=== PATIENT | female | born 1970 | race Caucasian/White ===

== ENCOUNTER → 2023-04-05 07:58 | Outpatient (REF) | payer OTHER, SELFPAY | LOC: PET 07:58 | PROVIDERS: ATTENDING PHYSICIAN Internal Medicine Medical Oncology | DX: C50.919 Malignant neoplasm of unspecified site of unspecified female breast (principal); C79.52 Secondary malignant neoplasm of bone marrow | CPT/HCPCS: 78815; A9552 ==

== ENCOUNTER → 2023-05-04 17:19 | Outpatient (REF) | payer OTHER, SELFPAY | LOC: PAVMRI 17:19 | PROVIDERS: ATTENDING PHYSICIAN Internal Medicine Medical Oncology; FAMILY PHYSICIAN Family Medicine | DX: C50.919 Malignant neoplasm of unspecified site of unspecified female breast (principal) | CPT/HCPCS: 72148; 72195 ==

== ENCOUNTER → 2023-07-05 08:21 | Outpatient (REF) | payer OTHER, SELFPAY | LOC: PET 08:21 | PROVIDERS: ATTENDING PHYSICIAN Internal Medicine Medical Oncology | DX: C50.919 Malignant neoplasm of unspecified site of unspecified female breast (principal) | CPT/HCPCS: 78815; A9552 ==

== ENCOUNTER → 2023-07-13 17:58 | Outpatient (REF) | payer OTHER, SELFPAY | LOC: MRI 17:58 | PROVIDERS: ATTENDING PHYSICIAN Radiology Radiation Oncology; FAMILY PHYSICIAN Family Medicine | DX: C50.919 Malignant neoplasm of unspecified site of unspecified female breast (principal); C79.52 Secondary malignant neoplasm of bone marrow | CPT/HCPCS: 72157; 72158; A9575 ==

== ENCOUNTER → 2023-09-06 08:45 | Outpatient (REF) | payer OTHER, SELFPAY | LOC: HWRAD 08:45 | PROVIDERS: ATTENDING PHYSICIAN Obstetrics & Gynecology Gynecology; FAMILY PHYSICIAN Family Medicine | DX: N95.0 Postmenopausal bleeding (principal) | CPT/HCPCS: 76830; 76856 ==

== ENCOUNTER → 2023-11-08 07:56 | Outpatient (REF) | payer OTHER, SELFPAY | LOC: PET 07:56 | PROVIDERS: ATTENDING PHYSICIAN Internal Medicine Medical Oncology | DX: C50.212 Malignant neoplasm of upper-inner quadrant of left female breast (principal) | CPT/HCPCS: 78815; A9552 ==

== ENCOUNTER → 2024-02-14 08:37 | Outpatient (REF) | payer OTHER, SELFPAY | LOC: PET 08:37 | PROVIDERS: ATTENDING PHYSICIAN Internal Medicine Medical Oncology | DX: C50.212 Malignant neoplasm of upper-inner quadrant of left female breast (principal) | CPT/HCPCS: 78815; A9552 ==

== ENCOUNTER 2024-04-09 21:23 | Observation (INO) | payer OTHER, SELFPAY ==
[2024-04-09 16:27] VITALS: BP 167/95
--- NOTE | 2024-04-09 16:35 | ED.GENMED ---
ED Provider Triage
<Dalia Mcpherson PA-C - Last Filed: 04/09/24 16:36>
-
Patient seen by provider in Triage?: Seen in Triage
Attestation: A medical screening examination has been initiated by a qualified medical provider. Based on the assessment performed at this time, it has been determined that an emergent medical condition may exist and the patient has been informed
that further medical evaluation and possible additional diagnostic testing may be needed.
HPI:53yoF here with blurred and double vision since Monday. New headache today. Saw eye doctor today and dilated eye exam was normal. She was sent to the ED for evaluation. Eye doctor requesting inflammatory markers, myasthenia gravis panel, and
MRI.
GENERAL: Alert , in no apparent distress
EYE: No visual abnormalities.
NECK: Trachea midline
ENT: No visible abnormalities.
LUNGS: No acute respiratory distress
NEUROLOGICAL: Alert and oriented
SKIN: Skin intact. No visible changes.
MUSCULOSKELETAL: Moving extremities normally
PSYCH: Normal and appropriate interaction.
This is a medical evaluation conducted in person to initiate diagnostic evaluation and provide initial therapeutics. Please see further documentation by the treating clinician.
Cardiac labs, ESR/CRP, EKG, and CT head ordered.
History of Present Illness
<Dalia Mcpherson PA-C - Last Filed: 04/09/24 16:36>
General
Chief Complaint: Headache
Time Seen by Provider: 04/09/24 18:28
<Gerhard Khan DO - Last Filed: 04/09/24 20:10>
History of Present Illness
History of Present Illness:
TIME OF INITIAL ENCOUNTER: 6:30 PM
HPI: The patient presents due to double/blurred vision over the past 4 days. She has no headache. She saw a fresh meat grader at Dr. Sanchez's office who sent her here for further evaluation. They wanted her to have MRI/myasthenia testing, and
inflammatory markers. She was told by the fresh meat grader that her symptoms are not 'not related to my eyes'.
EXAM:
GENERAL: Well appearing in no distress
HEENT: Moist oral mucosa
CARDIOVASCULAR: No murmurs, normal heart rate, regular rhythm, No chest wall tenderness
PULMONARY: No respiratory distress, breath sounds are clear and equal
ABDOMEN: Soft with no peritoneal signs, no tenderness
NEUROLOGIC: Excellent strength all extremities, no coordination deficits, no field cuts, no definite palsy nor disconjugate gaze, visual acuity in each eye corrected is 2024 this is an acute problem
PSYCHIATRIC: Appropriate mental status, normal insight and judgement
EXTREMITIES: Nontender, no edema, moves all extremities equally
SKIN: No rash, no lesions
NUMBER AND COMPLEXITY OF PROBLEMS ADDRESSED AT THE ENCOUNTER
� Chronic conditions affecting care: History of breast cancer
� Acute Exacerbation and/or Progression of Chronic Illness: This is an acute problem
� Differential Diagnosis includes: Vasculitis, hyper/hypoglycemia, aneurysm, intracranial mass/met
AMOUNT AND/OR COMPLEXITY OF DATA TO BE REVIEWED AND ANALYZED
� I performed an independent evaluation of and my interpretation is:
EKG: Sinus 83, incomplete right bundle branch block, no old to compare
CT: CT brain shows no acute abnormality
X-rays:
Laboratory Studies: White count 2.0, hemoglobin 10.6, sed rate 27, CRP less than 5, troponin less than 0.012
Other:
� Review of other/old records: I reviewed old records, the patient's white count in 2017 was also low at 2.3, today it is 2.0
� Clinical information was obtained by an independent historian: I spoke to at bedside
� Prescriptions/Medications Considered but not given:
� Further testing considered but not performed:
RISK OF COMPLICATIONS AND/OR MORBIDITY OR MORTALITY OF PATIENT MANAGEMENT
� Social determinants of health affecting care: Lives at home
� Discussion with other providers: I discussed case with Dr. Sanon who recommends patient be kept in the hospital for further evaluation
� Escalation of care including admission/observation vs risk of discharge considered: Initial studies to the emergency department unremarkable. Neurology recommends patient stay in the hospital therefore I have asked internal
medicine keep the patient for further evaluation.
ANY OTHER UPDATES:
Past History
<Dalia Mcpherson PA-C - Last Filed: 04/09/24 16:36>
Past History
ED Past Medical History: Cancer
ED Past Surgical History: None
Social History
Tobacco: Non-smoker
Personal:
Living: with family
Phy Exam
<Gerhard Khan DO - Last Filed: 04/09/24 20:10>
Physical Exam
Physical Exam:
See HPI
Course
<Dalia Mcpherson PA-C - Last Filed: 04/09/24 16:36>
Orders/Labs/Results
Orders:
Orders
04/09/24 16:31
Electrocardiogram (*1) Urgent
Reason for Study: TIA/Stroke
CT Head W/o Iv Contrast Urgent
Comment:
Reason For Exam: Blurred/double vision
EKG- Treatment ONCE
04/09/24 16:40
CRP [C-Reactive Protein] Urgent
Complete Blood Count/With Diff Urgent
Comprehensive Metabolic Panel Urgent
ESR [Erythrocyte Sed Rate] Urgent
Troponin I Urgent
Abnormal Lab Results
04/09/24
16:40
WBC 2.0 L* 10^3/uL
(4.8-10.8)
RBC 2.89 L 10^6/uL
(4.20-5.40)
Hgb 10.6 L g/dL
(12.0-16.0)
Hct 30.2 L %
(37.0-47.0)
MCV 104.5 H fL
(81.0-99.0)
MCH 36.7 H pg
(27.0-31.0)
Absolute Neuts (auto) 1.3 L 10^3/uL
(1.4-6.5)
Absolute Lymphs (auto) 0.4 L 10^3/uL
(1.2-3.4)
Monocytes % 13.9 H %
(1.7-9.3)
ESR 27 H mm/hour
(0-20)
Glucose 112 H mg/dl
(70-99)
Albumin 5.1 H g/dl
(3.5-5.0)
04/09/24 16:40
04/09/24 16:40
Vital Signs
Initial and Last Documented VS:
Initial Vital Signs
Temp Pulse Resp BP Pulse Ox
37.0 C 107 17 167/95 99
04/09/24 16:27 04/09/24 16:27 04/09/24 16:27 04/09/24 16:27 04/09/24 16:27
Last Documented Vital Signs
Temp Pulse Resp BP Pulse Ox
37.0 C 107 17 167/95 99
04/09/24 16:27 04/09/24 16:27 04/09/24 16:27 04/09/24 16:27 04/09/24 16:27
Ha[place];Gerhard Khan, - Last Filed: 04/09/24 20:10>
Orders/Labs/Results
Orders:
Orders
04/09/24 16:31
Electrocardiogram (*1) Urgent
Reason for Study: TIA/Stroke
CT Head W/o Iv Contrast Urgent
Comment:
Reason For Exam: Blurred/double vision
EKG- Treatment ONCE
04/09/24 16:40
CRP [C-Reactive Protein] Urgent
Complete Blood Count/With Diff Urgent
Comprehensive Metabolic Panel Urgent
ESR [Erythrocyte Sed Rate] Urgent
Troponin I Urgent
Abnormal Lab Results
04/09/24
16:40
WBC 2.0 L* 10^3/uL
(4.8-10.8)
RBC 2.89 L 10^6/uL
(4.20-5.40)
Hgb 10.6 L g/dL
(12.0-16.0)
Hct 30.2 L %
(37.0-47.0)
MCV 104.5 H fL
(81.0-99.0)
MCH 36.7 H pg
(27.0-31.0)
Absolute Neuts (auto) 1.3 L 10^3/uL
(1.4-6.5)
Absolute Lymphs (auto) 0.4 L 10^3/uL
(1.2-3.4)
Monocytes % 13.9 H %
(1.7-9.3)
ESR 27 H mm/hour
(0-20)
Glucose 112 H mg/dl
(70-99)
Albumin 5.1 H g/dl
(3.5-5.0)
04/09/24 16:40
04/09/24 16:40
Vital Signs
Initial and Last Documented VS:
Initial Vital Signs
Temp Pulse Resp BP Pulse Ox
37.0 C 107 17 167/95 99
04/09/24 16:27 04/09/24 16:27 04/09/24 16:27 04/09/24 16:27 04/09/24 16:27
Last Documented Vital Signs
Temp Pulse Resp BP Pulse Ox
37.0 C 107 17 167/95 99
04/09/24 16:27 04/09/24 16:27 04/09/24 16:27 04/09/24 16:27 04/09/24 16:27
<Gerhard Khan DO - Last Filed: 04/09/24 20:10>
*Critical Care Note
Total Time (30-74mins, 75-104mins- exclusive of procedures): Not Applicable
ED Attending Note
<Dalia Mcpherson PA-C - Last Filed: 04/09/24 16:36>
-
Portions of this chart may have been created with voice recognition software.� Occasional wrong word or��sound alike� substitutions may have occurred due to the inherent limitations of voice recognition software.
Discharge Plan
Departure
Patient Disposition: Admit
Date of Disposition: 04/09/24
Time of Disposition: 18:49
Presentation/result/management discussed w/ accepting MD/DO: Hospitalist
Discharge Problem:
Double vision
Prescriptions:
No Action
letrozole 2.5 MG tablet
2.5 mg PO HS
Ibrance 125 MG capsule
See Rx Instructions .ROUTE .COMPLEX
Patient Comments:
04/09/24: This is patient's off week
Rx Instructions:
125 mg orally daily every other week
acetaminophen [Tylenol] 325 mg Tablet
325 mg PO Q6HPRN PRN (Reason: headache)
levothyroxine 112 mcg Tablet
112 mcg PO DAILY
cholecalciferol (vitamin D3) [Vitamin D3] 25 mcg (1,000 unit) Tablet
25 mcg PO DAILY
Referrals:
Javi Mayberry MD [Family Provider] -
Interventions
Interventions:
*Risk Screen - Suicide Last Done: 04/09/24 16:28
*General Assessment Last Done: 04/09/24 16:28
*Neglect/Abuse Screening Last Done: 04/09/24 16:28
*ED COVID-19 Vaccine History Last Done: 04/09/24 16:28
Discharge Date and Time
Print Language: CYMRAES
[2024-04-09 16:56] LABS: % Eosinophils 0.5 % (0-6); % Immature Granulocytes 0.5 % (0-0.5); % Lymphocytes 20.9 % (20.5-51.1); % Monocytes 13.9 % (1.7-9.3); % Neutrophils 62.2 % (42.2-75.2); Absolute Lymphocytes 0.4 10^3/uL (1.2-3.4); Absolute Monocytes 0.3 10^3/uL (0.1-0.6); Absolute Neutrophils 1.3 10^3/uL (1.4-6.5); Hematocrit 30.2 % (37.0-47.0); Hemoglobin 10.6 g/dL (12.0-16.0); Mean Corp Hgb Conc. 35.1 g/dL (33.0-37.0); Mean Corpuscular Hgb 36.7 pg (27.0-31.0); Mean Corpuscular Volume 104.5 fL (81.0-99.0); Mean Platelet Volume 9.9 fL (7.4-10.4); Nucleated Red Blood Cells % 0 %; Platelet Count 178 10^3/uL (130-400); Red Blood Cell Count 2.89 10^6/uL (4.20-5.40); Red Cell Dist. Width 13.2 % (11.5-14.5)
[2024-04-09 17:05] LABS: ALT (SGPT) 14 U/L (0-35); AST (SGOT) 19 U/L (14-36); Albumin 5.1 g/dl (3.5-5.0); Alkaline Phosphatase 91 U/L (38-126); Blood Urea Nitrogen 13 mg/dl (7-17); Carbon Dioxide 26 mmol/L (22-30); Chloride 102 mmol/L (98-107); Glucose 112 mg/dl (70-99); Potassium 4.2 mmol/L (3.5-5.1); Sodium 137 mmol/L (135-145); Total Bilirubin 0.9 mg/dl (0.2-1.3); Total Protein 7.6 g/dl (6.3-8.2); eGFR > 60.00
[2024-04-09 17:08] LABS: C-Reactive Protein < 5.00 mg/L (0.0-10.00)
[2024-04-09 17:10] LABS: Erythrocyte Sed Rate 27 mm/hour (0-20)
[2024-04-09 17:15] LABS: Troponin I < 0.012 ng/ml
--- NOTE | 2024-04-09 19:55 | HPS.HSE ---
Family Physician
-
Family Physician: Javi Mayberry
Chief Complaint
-
Diplopia
History of Present Illness
This is a 53-year-old female with past medical history significant for hypothyroidism, breast cancer who presents to the emergency department with 4 days of diplopia.
Patient reports sudden onset of double vision. She also reports blurry vision. This improves when she closes 1 eye. The double vision is slightly diagonal in orientation. She denies any headache initially. She denies any sensation of foreign
body. She denies any lacrimation or eye pain. She denies any other focal neurological deficits. She was seen by optometry today and she had a normal eyesight. Reported to have a acuity of 20/25. Due to the ongoing double vision she was sent to
the emergency department for evaluation. Patient denies any prior history of vision abnormalities she does have eyeglasses for nearsightedness. The double vision does no change with eyeglasses are without.
In the ED she was hypertensive with a blood pressure 160/90, pulse of 100 and temperature of 98.6. ECG showed normal sinus rhythm at a rate of 83. Troponin was negative. CBC showed a white count of 2.0 which is chronic and unchanged. Hemoglobin
was 10.6 also unchanged. Electrolytes BUN/creatinine were within the normal range. Inflammatory markers were negative for the ESR of 27 and a CRP there is less than 5.
CT of the head shows no acute intracranial process.
Medical History
Past Medical History
Past Medical History: Reports Cancer (Breast cancer in remission) and Hypothyroidism
Past Surgical History: Reports Other
Social History
Tobacco: Non-smoker
Alcohol: None
Drug: None
Personal:
Living: With Family
Employment: Employed
Family History
Family History: Not pertinent
Allergies / Home Medications
Allergies reflects when Allergies were last updated in [facility].
Home Medications with original date entered in [facility]
Allergy/Medication List:
Allergies
Allergy/AdvReac Type Severity Reaction Status Date / Time
No Known Allergies Allergy Unverified 04/15/16 20:54
Home Medications
letrozole 2.5 mg tablet 2.5 mg PO HS 04/15/16
palbociclib 125 mg capsule (Ibrance) See Rx Instructions .Route .COMPLEX 04/15/16
acetaminophen 325 mg tablet (Tylenol) 325 mg PO Q6HPRN PRN headache 04/09/24
cholecalciferol (vitamin D3) 25 mcg (1,000 unit) tablet (Vitamin D3) 25 mcg PO DAILY 04/09/24
levothyroxine 112 mcg tablet 112 mcg PO DAILY 04/09/24
Review of Systems
-
History Source: Patient
Constitutional: Reports No Symptoms
EENT: Reports No Symptoms
Respiratory: Reports No Symptoms
Cardiac: Reports No Symptoms
Abdomen/GI: Reports No Symptoms
: Reports No Symptoms
Musculoskeletal: Reports No Symptoms
Skin: Reports No Symptoms
Neurological: Reports No Symptoms
Endocrine: Reports No Symptoms
Hematologic/Lymphatic: Reports No Symptoms
Psych: Reports No Symptoms
Physical Exam
Vital Signs
Vital Signs
Temp Pulse Resp BP Pulse Ox
98.6 F 107 17 167/95 99
04/09/24 16:27 04/09/24 16:27 04/09/24 16:27 04/09/24 16:27 04/09/24 16:27
Physical Exam
General: Well Developed, Well Nourished and No Apparent Distress
HEENT: NormoCephalic, Anicteric, Moist mucous membranes and PERRLA
Respiratory: Clear
Cardiac: S1/S2
Breast: Deferred by me
Rectal: Deferred by Provider
Genito-urinary: Deferred by me
Musculoskeletal: No Clubbing and No Cyanosis
Skin: Warm
Neuro: AO x 3, No Motor Deficits, Cranial Nerves Intact and Other (No visual field defects. There is a slight left eye droop. )
Hematologic/Lymphatic: No Lymphadenopathy
Psych: Calm
Laboratory Results
-
04/09/24 16:40
04/09/24 16:40
Laboratory Results
Total Bilirubin 0.9 mg/dl (0.2-1.3) 04/09/24 16:40
AST 19 U/L (14-36) 04/09/24 16:40
ALT 14 U/L (0-35) 04/09/24 16:40
Alkaline Phosphatase 91 U/L (38-126) 04/09/24 16:40
Troponin I < 0.012 ng/ml 04/09/24 16:40
Data Reviewed
-
CT Scan: Report Reviewed by me
Lab Data: Labs Reviewed by me
Old Records: Reviewed
Impression/Plan
-
IMPRESSION:
Patient with history of breast ca in remission, hypothyroid presenting with diploplia x 4 days. Persistent and constant. Not worse with any particular saccade motion. No vertigo. Exam is very negative with good visual acuity, no visual field
defect, no eye movement defect and no eye swelling. She has no other focal neurological deficits. Initial testing is negative for stroke on CT, negative non-specific inflammatory markers.
PLAN:
Diplopia - No evidence of gaze palsy at this time. Differential includes QUENTIN lesion, MG, MS or thyroid ophthalmopathy. Mostly can be w/u as outpatient except subacute stroke in F.
- admit to med/surg
- neuro consult
- mri in am
- cardiovascular panel
- tsh
- w/ negative inflammatory markers will leave specific serological testing to neuro if needed.
- continue levothyroxine
DVT PPX - SCDs
Code Status - Full Code
[2024-04-09 19:57] VITALS: BP 131/76
[2024-04-09 20:00] VITALS: BP 123/83
[2024-04-09 21:00] VITALS: BP 123/76
[2024-04-09 22:00] VITALS: BP 128/88
--- NOTE | 2024-04-09 22:25 | PTCARENOTE ---
Pt. arrived on unit via stretcher. A&Ox3. Ambulated from stretcher to bed. Pt. oriented to unit. Call light within reach.
[2024-04-09 22:26] VITALS: BMI 21.5
[2024-04-09] MEDS: TYLENOL 325 MG PO (22:47)
[2024-04-09] MEDS: FEMARA 2.5 MG PO (22:47)
[2024-04-09 23:35] VITALS: BP 138/86
[2024-04-10] MEDS: SYNTHROID 112 MCG PO (05:16)
[2024-04-10 07:00] VITALS: BP 127/77
--- NOTE | 2024-04-10 07:15 | CON.NEURO ---
Consultation
Order
Date of Consultation: 04/10/24
Requesting Provider: Alonzo Santiago MD
Reason for Consult: Diplopia
Neurology Consultation Note.
HPI: This is a 53-year-old woman who presented to [facility] on 04/09/2024 with change in vision. According to the patient she developed intermittent binocular painless horizontal diplopia worse at distance around 4 days ago. Her
symptoms are worse in the morning and improve at the end of the day. No reports of head trauma, dysarthria, dysphagia, facial numbness, vertigo or dyspnea.
ER VS: 167/92, 107, afebrile
EKG: NSR, QTc Int : 458 ms
Labs: WBCs�2.0, hemoglobin�10.6, MCV�104.5, absolute lymphocyte count�0.4, ESR�27, glucose�112�normal sodium,
CT head wo contrast�unremarkable
LS spine MRI w/wo maura(05/04/2023)-2.0 x 1.2 x 2.0 cm oval-shaped circumscribed paraspinal cyst complex cyst.
PMH: stage IV left breast invasive carcinoma(2013), S3 osseous metastases, s/p RT , anemia, hypothyroidism vitamin D deficiency, osteopenia, GERD
PSH: Right breast cystectomy
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
FH: Mother�check arrhythmia, grandmother�colon cancer, stroke.
All:NKDA
ROS:Constitutional: Negative. Negative for chills, fever and unexpected weight change.
HENT: Positive for diplopia
Eyes: Negative. Negative for photophobia, pain and visual disturbance.
Respiratory: Negative for cough, choking and shortness of breath.
Cardiovascular: Negative for chest pain, palpitations and leg swelling.
Gastrointestinal: Negative for abdominal pain and vomiting.
Endocrine: Negative. Negative for cold intolerance.
Genitourinary: Negative for dysuria, flank pain and urgency.
Musculoskeletal: Negative for back pain, gait problem, neck pain and neck stiffness.
Skin: Negative for rash.
Allergic/Immunologic: Negative. Negative for immunocompromised state.
Neurological: Positive for transient left foot drop in 2023
Psychiatric/Behavioral: Negative for behavioral problems, confusion and hallucinations.
General: Well developed. In no acute distress.
Cardio: Regular rate and rhythm without murmur. Extremities are without cyanosis or edema.
Neuro:
Mental Status: Alert, oriented to person, place, and date. Normal attention and recall. Good fund of knowledge. Follows complex requests across the midline. Comprehension, naming, and repetition intact. Immediate and delayed recall 3/3.
Cranial Nerves: . Pupils are equally round and reactive to light. EOMs full. Visual abbott full to confrontation. Horizontal binocular diplopia at distance. Mild L ptosis. No nystagmus. V1-V3 intact to light touch and pinprick bilaterally,
symmetric. Face symmetric. Normal hearing AU. The palate elevated well. SCMs and traps 5/5. Tongue midline. No dysarthria.
Motor: Normal bulk and tone. No pronator or arm drift. Strength 5/5 throughout. No clonus.
Reflexes: 2+ throughout the upper extremities and knees. Plantar responses flexor bilaterally.
Sensory: Normal vibration at the toes
Coordination: No dysmetria or tremor.
Gait: deferred
Assessment and Plan:
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
II. Stage IV left breast invasive carcinoma
III. T/LS DJD, S3 osseous metastases, s/p RT
-Continue Telemetry monitoring.
-Brain MRI with and without gadolinium
-Please check TFTs, MG panel, �voltage-gated calcium channel ab
-OP NCS/EMG with RNS if brain MRI is unremarkable
-Eye patch
-DVT prophylaxis.
I personally reviewed all radiology and labs along with past medical records pertinent to current medical problems. Total time spent in patient care is 60 minutes.
Thank you for allowing us to participate in the care of this patient. We will continue to follow. Please do not hesitate to contact us with any questions or concerns.
Subjective/Objective
Subjective Data
Date of Service: April 10, 2024
Objective Data
Vital Signs
Temp Pulse Resp BP Pulse Ox
36.8 C 74 16 138/86 100
04/09/24 23:35 04/09/24 23:35 04/09/24 23:35 04/09/24 23:35 04/09/24 23:35
Lab Results
04/09/24 16:40
04/09/24 16:40
Sodium 137 mmol/L (135-145) 04/09/24 16:40
Potassium 4.2 mmol/L (3.5-5.1) 04/09/24 16:40
BUN 13 mg/dl (7-17) 04/09/24 16:40
Glucose 112 mg/dl (70-99) H 04/09/24 16:40
Calcium 10.0 mg/dl (8.4-10.2) 04/09/24 16:40
Patient Allergies
No Known Allergies Allergy (Unverified 04/15/16 20:54)
Medications
-
Active Medications
Generic Name Dose Route Start Last Admin
Trade Name Freq PRN Reason Stop Dose Admin
Acetaminophen 325 mg 04/09/24 22:23 04/09/24 22:47
Acetaminophen 325 Mg Tablet PO 05/07/24 22:22 325 mg
Q6HPRN PRN Administration
headache
Cholecalciferol 25 mcg 04/10/24 08:00
Cholecalciferol (Vitamin D3) 25 Mcg Tablet (1,000 Units) PO 05/08/24 07:59
DAILY DARIUS
Letrozole 2.5 mg 04/09/24 22:23 04/09/24 22:47
Letrozole 2.5 Mg (Non-Form) Tablet PO 05/07/24 22:22 2.5 mg
HS DARIUS Administration
Levothyroxine Sodium 112 mcg 04/10/24 06:00 04/10/24 05:16
Levothyroxine 112 Mcg Tablet PO 05/08/24 05:59 112 mcg
DAILY @ 0600 DARIUS Administration
Sodium Chloride 0 flush 04/09/24 22:00
Sodium Chloride 0.9% (Flush) Syringe IV 05/07/24 21:59
PER PROTOCOL DARIUS
Home Medications
�Medication �Instructions �Recorded
letrozole 2.5 mg tablet 2.5 mg PO HS 04/15/16
palbociclib 125 mg capsule See Rx Instructions .Route .COMPLEX 04/15/16
(Ibrance)
acetaminophen 325 mg tablet 325 mg PO Q6HPRN PRN headache 04/09/24
(Tylenol)
cholecalciferol (vitamin D3) 25 25 mcg PO DAILY 04/09/24
mcg (1,000 unit) tablet (Vitamin
D3)
levothyroxine 112 mcg tablet 112 mcg PO DAILY 04/09/24
Vital Signs and Labs
-
Vital Signs and Labs:
Vital Signs
Temp Pulse Resp BP Pulse Ox
36.4 C 80 18 127/77 98
04/10/24 07:00 04/10/24 07:00 04/10/24 07:00 04/10/24 07:00 04/10/24 10:09
Lab Results
04/09/24 16:40
04/09/24 16:40
Sodium 137 mmol/L (135-145) 04/09/24 16:40
Potassium 4.2 mmol/L (3.5-5.1) 04/09/24 16:40
BUN 13 mg/dl (7-17) 04/09/24 16:40
Glucose 112 mg/dl (70-99) H 04/09/24 16:40
Calcium 10.0 mg/dl (8.4-10.2) 04/09/24 16:40
Phosphorus 4.1 mg/dl (2.5-4.5) 04/10/24 07:37
Vitamin B12 401 pg/ml (239-931) 04/10/24 07:37
Medications
-
Medications:
Generic Name Dose Route Start Last Admin
Trade Name Freq PRN Reason Stop Dose Admin
Acetaminophen 325 mg 04/09/24 22:23 04/10/24 08:52
Acetaminophen 325 Mg Tablet PO 05/07/24 22:22 325 mg
Q6HPRN PRN Administration
headache
Cholecalciferol 25 mcg 04/10/24 08:00 04/10/24 08:49
Cholecalciferol (Vitamin D3) 25 Mcg Tablet (1,000 Units) PO 05/08/24 07:59 25 mcg
DAILY DARIUS Administration
Letrozole 2.5 mg 04/09/24 22:23 04/09/24 22:47
Letrozole 2.5 Mg (Non-Form) Tablet PO 05/07/24 22:22 2.5 mg
HS DARIUS Administration
Levothyroxine Sodium 112 mcg 04/10/24 06:00 04/10/24 05:16
Levothyroxine 112 Mcg Tablet PO 05/08/24 05:59 112 mcg
DAILY @ 0600 DARIUS Administration
Sodium Chloride 0 flush 04/09/24 22:00
Sodium Chloride 0.9% (Flush) Syringe IV 05/07/24 21:59
PER PROTOCOL DARIUS
Home Medications
-
Home Medications
letrozole 2.5 mg tablet 2.5 mg PO HS breast cancer 04/15/16
palbociclib 125 mg capsule (Ibrance) See Rx Instructions .Route .COMPLEX breast cancer 04/15/16
acetaminophen 325 mg tablet (Tylenol) 325 mg PO Q6HPRN PRN headache 04/09/24
cholecalciferol (vitamin D3) 25 mcg (1,000 unit) tablet (Vitamin D3) 25 mcg PO DAILY Supplement 04/09/24
levothyroxine 112 mcg tablet 112 mcg PO DAILY Thyroid 04/09/24
[2024-04-10 08:08] LABS: Magnesium 2.1 mg/dl (1.6-2.3); Phosphorus 4.1 mg/dl (2.5-4.5)
[2024-04-10 08:39] LABS: TSH Reflex To Free T4 4.63 uIU/ml (0.47-4.68)
[2024-04-10] MEDS: VITAMIN D3 (cholecalciferol) 25 MCG PO (08:49)
[2024-04-10] MEDS: TYLENOL 325 MG PO (08:52)
[2024-04-10 09:48] LABS: Folate > 20.0 ng/ml (2.76-20); Vitamin B12 401 pg/ml (239-931)
[2024-04-10 11:32] LABS: Amphetamines Negative (Negative); Barbiturates Negative (Negative); Benzodiazepines Negative (Negative); Buprenorphine Negative (Negative); Cocaine Negative (Negative); Marijuana Negative (Negative); Methadone Negative (Negative); Methamphetamines Negative (Negative); Opiates Negative (Negative); Phencyclidine Negative (Negative); Tricyclic Antidepressants Negative (Negative)
--- NOTE | 2024-04-10 13:14 | W.PN.HOSP.TC ---
Today's Communication/Plan
-
MRI brain
Assessment / Plan
Assessment / Plan
53yo F with metastatic breast CA (to the bones) on chemotherapy, hypothyroidism came with 5 days slow onset of blurry vision that progressed to double vision. Improving with single eye cover. Also patient notd improvement as the day goes by.
Previously intemittently had problems with her eyes with clear discharge, eye droop that were treated with Abx/steroid topical by bowling floor manager and resolving.
A/P:
#Double vision
Send [facility]
CT head WNL
MRI head
B12, folate WNL
TSH 4.63 - WNL
ESR 27
CRP normal
electrolytes WNL
Neurology follows: calcium channel Ab to be added, outpatient NCS/EMG
#Metastatic breast CA
#Chronic leukopenia
#Chronic anemia
on chemo
#Hypothyroidism
cont home meds
DVT ppx lovenox
Full code
I have spent at least 59min reviewing chart, test results, communication with consultants and direct patient care
Anticipated Discharge: Within 24 hours
Subjective/Interval History
-
Date of Service: April 10, 2024
Objective Data
-
Vital Signs:
Vital Signs
Temp Pulse Resp BP Pulse Ox
97.5 F 80 18 127/77 98
04/10/24 07:00 04/10/24 07:00 04/10/24 07:00 04/10/24 07:00 04/10/24 10:09
I&O
04/09/24 04/10/24 04/11/24
06:59 06:59 06:59
Intake Total 240 / 240
Balance 240 / 240
Review of Systems
-
History Source: Patient
All other systems: Reviewed and negative
EENT: Reports Other (double vision)
Physical Exam
-
General: No Apparent Distress
HEENT: Normocephalic and Other (minimal L eyelid droop)
Respiratory: Clear to Auscultation
GI: Soft, Nontender and Nondistended
Genito-urinary: No Costovertebral Tender
Musculoskeletal: No Clubbing, No Cyanosis and No Edema
Neuro: Awake, Oriented and AO x 3
Psych: Calm
--- NOTE | 2024-04-10 13:57 | CM ---
Addendum entered by Marilia Sawyer 04/10/24 16:01:
Patient and daughter seen at bedside, awaiting MRI. Patient completed OBS form and signed form placed on chart.
Original Note:
Patient seen at bedside. Patient states that she lives with her family in a 2 story home. Patient with double vision. Patient states that her PCP is Dr. Mayberry and she uses the [facility] in [place]. Patient has a walker and cane but does not currently use
them. Patient was given OBS forms and indicated that she would review them with her daughter. CM will continue to follow for discharge planning needs.
Plan; home with no needs
[2024-04-10 15:00] VITALS: BP 126/73
[2024-04-10] MEDS: FEMARA 2.5 MG PO (21:29)
[2024-04-10 23:50] VITALS: BP 127/77
[2024-04-11] MEDS: SYNTHROID 112 MCG PO (05:29)
[2024-04-11 07:00] VITALS: BP 112/70
[2024-04-11] MEDS: VITAMIN D3 (cholecalciferol) 25 MCG PO (08:35)
--- NOTE | 2024-04-11 10:28 | CM ---
Patient seen at bedside. Patient pending further assessment but indicated that she is feeling a bit better. CM will continue to follow for discharge planning needs.
Plan; home with family no needs anticipated.
--- NOTE | 2024-04-11 12:27 | W.PN.HOSP.TC ---
Today's Communication/Plan
-
pending further neurologist reccomendations
Assessment / Plan
Assessment / Plan
53yo F with metastatic breast CA (to the bones) on chemotherapy, hypothyroidism came with 5 days slow onset of blurry vision that progressed to double vision. Improving with single eye cover. Also patient notd improvement as the day goes by.
Previously intermittently had problems with her eyes with clear discharge, eye droop that were treated with Abx/steroid topical by caseworker protective services and were resolving. MRI brain without acute findings, neurologist reviewed. Will need outpatient
neurologist for NCS/EMG. Started on empiric physostigmine while awaiting ACH Ab.
A/P:
#Double vision
Send ACHAb
CT head WNL
MRI head: There are no focal or acute intracranial abnormalities. There are several subtle punctate areas of nonspecific white matter change which may be ischemic, degenerative or demyelinating in origin but given the patient's age most likely
ischemic or degenerative and of doubtful clinical significance
B12, folate WNL
TSH 4.63 - WNL
ESR 27
CRP normal
electrolytes WNL
Neurology follows: calcium channel Ab to be added, outpatient NCS/EMG, started physostigmine as per agreement with patient
#Metastatic breast CA
#Chronic leukopenia
#Chronic anemia
on chemo
#Hypothyroidism
cont home meds
DVT ppx lovenox
Full code
I have spent at least 39min reviewing chart, test results, communication with consultants and direct patient care
Anticipated Discharge: 24 - 48 hours
Subjective/Interval History
-
Date of Service: April 11, 2024
Objective Data
-
Vital Signs:
Vital Signs
Temp Pulse Resp BP Pulse Ox
97.9 F 78 16 112/70 99
04/11/24 07:00 04/11/24 07:00 04/11/24 07:00 04/11/24 07:00 04/11/24 07:00
I&O
04/10/24 04/11/24 04/12/24
06:59 06:59 06:59
Intake Total 240 / 240 2370 / 2370
Balance 240 / 240 2370 / 2370
Review of Systems
-
History Source: Patient
All other systems: Reviewed and negative
EENT: Reports Other (dyplopia)
Physical Exam
-
General: Well Developed
HEENT: Normocephalic and Atraumatic
Respiratory: Clear to Auscultation
GI: Soft, Nontender and Nondistended
Skin: Warm
Neuro: Awake, Alert, Oriented and AO x 3
Psych: Calm
[2024-04-11] MEDS: MESTINON 30 MG PO (13:06)
[2024-04-11 13:31] LABS: Lyme Antibody Screen, EIA Negative (Negative)
--- NOTE | 2024-04-11 14:52 | W.PN.NEURO.1 ---
Today's Communication / Plan
-
.
Subjective/Objective
Subjective Data
Date of Service: April 11, 2024
Neurology follow-up note
Ms. Aldrich endorses ongoing relatively stable diplopia. No reports of headaches, dysarthria, dyspnea or dysphagia.
Brain MRI showed no acute infarcts or pontine/midbrain lesions.
TFTs�normal.
PMH: stage IV left breast invasive carcinoma(2013), S3 osseous metastases, s/p RT , anemia, hypothyroidism vitamin D deficiency, osteopenia, GERD
PSH: Right breast cystectomy
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
FH: Mother�check arrhythmia, grandmother�colon cancer, stroke.
All:NKDA
ROS:Constitutional: Negative. Negative for chills, fever and unexpected weight change.
HENT: Positive for diplopia, positive for xerophthalmia
Eyes: Positive for intermittent diplopia
Respiratory: Negative for cough, choking and shortness of breath.
Cardiovascular: Negative for chest pain, palpitations and leg swelling.
Gastrointestinal: Negative for abdominal pain and vomiting.
Endocrine: Negative. Negative for cold intolerance.
Genitourinary: Negative for dysuria, flank pain and urgency.
Musculoskeletal: Negative for back pain, gait problem, neck pain and neck stiffness.
Allergic/Immunologic: Negative. Negative for immunocompromised state.
Neurological: Positive for transient left foot drop in 2023
Psychiatric/Behavioral: Negative for behavioral problems, confusion and hallucinations.
General: Well developed. In no acute distress.
Cardio: Regular rate and rhythm without murmur. Extremities are without cyanosis or edema.
Neuro:
Mental Status: Alert, oriented to person, place, and date. Normal attention and recall. Good fund of knowledge. Follows complex requests across the midline. Comprehension, naming, and repetition intact. Immediate and delayed recall 3/3.
Cranial Nerves: . Pupils are equally round and reactive to light. EOMs full. Visual abbott full to confrontation. Horizontal binocular diplopia at distance. Mild L ptosis. No nystagmus. V1-V3 intact to light touch and pinprick bilaterally,
symmetric. Face symmetric. Normal hearing AU. The palate elevated well. SCMs and traps 5/5. Tongue midline. No dysarthria.
Motor: Normal bulk and tone. No pronator or arm drift. Strength 5/5 throughout. No clonus.
Reflexes: 2+ throughout the upper extremities and knees. Plantar responses flexor bilaterally.
Sensory: Normal vibration at the toes
Coordination: No dysmetria or tremor.
Gait: deferred
Assessment and Plan:
I. 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
II. Stage IV left breast invasive carcinoma
III. T/LS DJD, S3 osseous metastases, s/p RT
-Continue to wear eye patch
-Follow-up MG panel, �voltage-gated calcium channel ab
-OP NCS/EMG with RNS
-Eye patch
-Mestinon trial. Most common side effects were reviewed
-Outpatient neurology follow-up in 2 weeks
I personally reviewed all radiology and labs along with past medical records pertinent to current medical problems. Total time spent in patient care is 37 minutes.
Thank you for allowing us to participate in the care of this patient. Please do not hesitate to contact us with any questions or concerns.
Objective Data
Vital Signs
Temp Pulse Resp BP Pulse Ox
36.6 C 78 16 112/70 99
04/11/24 07:00 04/11/24 07:00 04/11/24 07:00 04/11/24 07:00 04/11/24 07:00
Lab Results
04/09/24 16:40
04/09/24 16:40
Sodium 137 mmol/L (135-145) 04/09/24 16:40
Potassium 4.2 mmol/L (3.5-5.1) 04/09/24 16:40
BUN 13 mg/dl (7-17) 04/09/24 16:40
Glucose 112 mg/dl (70-99) H 04/09/24 16:40
Calcium 10.0 mg/dl (8.4-10.2) 04/09/24 16:40
Phosphorus 4.1 mg/dl (2.5-4.5) 04/10/24 07:37
Vitamin B12 401 pg/ml (026-020) 04/10/24 07:37
Ur Buprenorphine Negative (Negative) 04/10/24 10:53
Patient Allergies
No Known Allergies Allergy (Unverified 04/15/16 20:54)
Vital Signs and Labs
-
Vital Signs and Labs:
Vital Signs
Temp Pulse Resp BP Pulse Ox
36.6 C 78 16 112/70 99
04/11/24 07:00 04/11/24 07:00 04/11/24 07:00 04/11/24 07:00 04/11/24 07:00
Lab Results
04/09/24 16:40
04/09/24 16:40
Sodium 137 mmol/L (135-145) 04/09/24 16:40
Potassium 4.2 mmol/L (3.5-5.1) 04/09/24 16:40
BUN 13 mg/dl (7-17) 04/09/24 16:40
Glucose 112 mg/dl (70-99) H 04/09/24 16:40
Calcium 10.0 mg/dl (8.4-10.2) 04/09/24 16:40
Phosphorus 4.1 mg/dl (2.5-4.5) 04/10/24 07:37
Vitamin B12 401 pg/ml (259-111) 04/10/24 07:37
Ur Buprenorphine Negative (Negative) 04/10/24 10:53
Medications
-
Medications:
Generic Name Dose Route Start Last Admin
Trade Name Freq PRN Reason Stop Dose Admin
Acetaminophen 325 mg 04/09/24 22:23 04/10/24 08:52
Acetaminophen 325 Mg Tablet PO 05/07/24 22:22 325 mg
Q6HPRN PRN Administration
headache
Cholecalciferol 25 mcg 04/10/24 08:00 04/11/24 08:35
Cholecalciferol (Vitamin D3) 25 Mcg Tablet (1,000 Units) PO 05/08/24 07:59 25 mcg
DAILY DARIUS Administration
Enoxaparin Sodium 40 mg 04/10/24 18:00 04/10/24 17:08
Enoxaparin Sodium 40 Mg/0.4 Ml Syringe SC 05/08/24 17:59 Not Given
QPM DARIUS
Letrozole 2.5 mg 04/09/24 22:23 04/10/24 21:29
Letrozole 2.5 Mg (Non-Form) Tablet PO 05/07/24 22:22 2.5 mg
HS DARIUS Administration
Levothyroxine Sodium 112 mcg 04/10/24 06:00 04/11/24 05:29
Levothyroxine 112 Mcg Tablet PO 05/08/24 05:59 112 mcg
DAILY @ 0600 DARIUS Administration
Sodium Chloride 0 flush 04/09/24 22:00
Sodium Chloride 0.9% (Flush) Syringe IV 05/07/24 21:59
PER PROTOCOL DARIUS
Home Medications
-
Home Medications
letrozole 2.5 mg tablet 2.5 mg PO HS breast cancer 04/15/16
palbociclib 125 mg capsule (Ibrance) See Rx Instructions .Route .COMPLEX breast cancer 04/15/16
acetaminophen 325 mg tablet (Tylenol) 325 mg PO Q6HPRN PRN headache 04/09/24
cholecalciferol (vitamin D3) 25 mcg (1,000 unit) tablet (Vitamin D3) 25 mcg PO DAILY Supplement 04/09/24
levothyroxine 112 mcg tablet 112 mcg PO DAILY Thyroid 04/09/24
[2024-04-11 15:21] VITALS: BP 118/73
--- NOTE | 2024-04-11 17:34 | W.DCSUMMARY ---
Discharge Summary
Discharge Data
Date of Admission: 04/09/24
Date of Discharge: 04/11/24
-
Pending Results: Yes
Additional Pending Results:
Ach Ab and Voltage-gated Ca channel Ab
Hospital Course
53yo F with metastatic breast CA (to the bones) on chemotherapy, hypothyroidism came with 5 days slow onset of blurry vision that progressed to double vision. Improving with single eye cover. Also patient notd improvement as the day goes by.
Previously intermittently had problems with her eyes with clear discharge, eye droop that were treated with Abx/steroid topical by esol teacher and were resolving. MRI brain without acute findings, neurologist reviewed. Will need outpatient
neurologist for NCS/EMG. Started on empiric physostigmine while awaiting ACH Ab.
I have spent at least 39min reviewing chart, test results, communication with consultants and direct patient care
patient was managed for:
#Double vision
#Metastatic breast CA
#Chronic leukopenia
#Chronic anemia
#Hypothyroidism
Discharge Plan
-
Patient Disposition: Home (Routine Discharge)
Discharge Diagnosis/Procedures: diplopia
Diet: Regular
Driving Restrictions: As prior to admission
Activity Restrictions/Additional Instructions:
Continue to wear eye patch
Follow-up MG test, �voltage-gated calcium channel ab test
outpatient NCS/EMG
Referrals:
Howard Epps MD [Active] - in two to three weeks
Javi Mayberry MD [Family Provider] -
Prescriptions:
New
pyridostigmine bromide [Mestinon] 60 mg tablet
60 mg PO TID Qty: 30 0RF
Rx Instructions:
take if symptoms worsens
Continued
letrozole 2.5 MG tablet
2.5 mg PO HS
Ibrance 125 MG capsule
See Rx Instructions .ROUTE .COMPLEX
Patient Comments:
04/09/24: This is patient's off week
Rx Instructions:
125 mg orally daily every other week
acetaminophen [Tylenol] 325 mg Tablet
325 mg PO Q6HPRN PRN (Reason: headache)
levothyroxine 112 mcg Tablet
112 mcg PO DAILY
cholecalciferol (vitamin D3) [Vitamin D3] 25 mcg (1,000 unit) Tablet
25 mcg PO DAILY
Discharge Orders:
Discharge Patient (As Directed); Ordered 04/11/24
Ordered By: Timothy Venegas
Discharge Date and Time
Print Language: LUXEMBOURGISH
[2024-04-13 13:15] LABS: Vitamin B1, Whole Blood 83 nmol/L (70-180)
== END 2024-04-11 18:19 | disposition home or self-care (01) ==
LOC: 3 WEST ACU 21:23
PROVIDERS: Physician Assistant; ADMITTING PHYSICIAN Internal Medicine; ATTENDING PHYSICIAN Internal Medicine; CONSULT PHYSICIAN Psychiatry & Neurology Neurology; EMERGENCY PHYSICIAN Emergency Medicine; FAMILY PHYSICIAN Family Medicine
DX: H53.2 Diplopia (principal); R51.9 Headache, unspecified; H53.8 Other visual disturbances; I45.10 Unspecified right bundle-branch block; C50.912 Malignant neoplasm of unspecified site of left female breast; E03.9 Hypothyroidism, unspecified; C79.51 Secondary malignant neoplasm of bone; D72.819 Decreased white blood cell count, unspecified; K21.9 Gastro-esophageal reflux disease without esophagitis; M85.80 Other specified disorders of bone density and structure, unspecified site; E55.9 Vitamin D deficiency, unspecified; D64.9 Anemia, unspecified; Z79.811 Long term (current) use of aromatase inhibitors; Z79.890 Hormone replacement therapy; Z92.21 Personal history of antineoplastic chemotherapy
CPT/HCPCS: 70450; 70553; 80053; 80306; 82077; 82607; 82746; 83735; 84100; 84425; 84443; 84484; 85025; 85652; 86041; 86140; 86618; 93005; 99285; A9575; G0378

== ENCOUNTER → 2024-05-08 08:28 | Outpatient (REF) | payer OTHER, SELFPAY | LOC: PET 08:28 | PROVIDERS: ATTENDING PHYSICIAN Nurse Practitioner Adult Health | DX: C50.212 Malignant neoplasm of upper-inner quadrant of left female breast (principal) | CPT/HCPCS: 78815; A9552 ==

== ENCOUNTER 2024-07-15 22:56 | Observation (INO) | payer OTHER, SELFPAY ==
[2024-07-15 17:54] VITALS: BP 151/80
--- NOTE | 2024-07-15 18:50 | CON.NEURO ---
Consultation
Order
Date of Consultation: 07/15/24
Requesting Provider: Surjit Rod MD
Reason for Consult: Ambulatory dysfunction
Neurology Consultation Note.
HPI: This is a 53-year-old woman who presented to [facility] with subacute sensory symptoms and ambulatory dysfunction.
Ms. Aldrich endorses subacute paresthesia involving her right greater than left foot that started 07/10/2024. The symptoms are constant and are associated with right foot cramping and imbalance. She developed difficulty with driving over the weekend
and difficulties with standing since morning today.
No reports of motor symptoms, sensory symptoms in the hands, radicular back pain.
Associated symptoms include frequent urination, with the patient reporting the need to urinate every 15-20 minutes this morning. The patient denies any falls.
I saw Ms. Aldrich on April 10, 2024 for intermittent binocular diplopia. Brain MRI at that time showed no acute infarcts. The patient states that her symptoms lasted several days after hospital discharge with spontaneous resolution. She has not
required Mestinon.
ER VS: 151/80, 97, afebrile
EKG: Pending
PDMP: No recently prescribed medications
Labs: Pending
PMH: stage IV left breast invasive carcinoma(2013), S3 osseous metastases, s/p RT , anemia, hypothyroidism vitamin D deficiency, osteopenia, GERD, resident is a
PSH: Right breast cystectomy
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
FH: Mother�check arrhythmia, grandmother�colon cancer, stroke.
All:NKDA
ROS: Constitutional: Negative. Negative for chills, fever and unexpected weight change.
HENT: Negative for ear pain, hearing loss, tinnitus and trouble swallowing.
Eyes: Negative. Negative for photophobia, pain and visual disturbance.
Respiratory: Negative for cough, choking and shortness of breath.
Cardiovascular: Negative for chest pain, palpitations and leg swelling.
Gastrointestinal: Negative for abdominal pain and vomiting.
Endocrine: Negative. Negative for cold intolerance.
Genitourinary: Positive for urinary frequency
Musculoskeletal: Negative for back pain, gait problem, neck pain and neck stiffness.
Skin: Negative for rash.
Allergic/Immunologic: Negative. Negative for immunocompromised state.
Neurological: Positive for paresthesias, imbalance
Psychiatric/Behavioral: Negative for behavioral problems, confusion and hallucinations.
General: Well developed. In no acute distress.
Cardio: Regular rate and rhythm without murmur. Extremities are without cyanosis or edema.
Neuro:
Mental Status: Alert, oriented to person, place, and date. Normal attention and recall. Good fund of knowledge. Follows complex requests across the midline. Comprehension, naming, and repetition intact. Anxious mood
Cranial Nerves: Pupils are equally round and reactive to light. EOMs full. Visual abbott full to confrontation. No ptosis. No nystagmus. V1-V3 intact to light touch and pinprick bilaterally, symmetric. Face symmetric. Normal hearing AU. The
palate elevated well. SCMs and traps 5/5. Tongue midline. No dysarthria.
Motor: Normal bulk and tone. No pronator or arm drift. Strength 5/5 throughout. No clonus.
Reflexes: 2+ throughout the upper extremities and 3+ knees. 2/2 in AJs. Plantar responses flexor bilaterally. Negative Eunice's bilaterally
Sensory: Normal vibration and proprioception at the toes
Coordination: No dysmetria or tremor.
Gait: deferred
Assessment and Plan:
I. Distal paresthesias. Neuroexam was notable for brisk reflexes.
II. Stage IV left breast invasive carcinoma
III. T/LS DJD, S3 osseous metastases, s/p RT .
- Fall precautions
- Please check PVR
- Please check vitamin B12, folate, TSH, free T4, vitamin B1, SPEP.
- Stat T-spine MRI with and without gadolinium to rule out intra medullary lesion
- Will follow-up
I personally reviewed all radiology and labs along with past medical records pertinent to current medical problems. Total time spent in patient care is 60 minutes.
Thank you for allowing us to participate in the care of this patient. We will continue to follow. Please do not hesitate to contact us with any questions or concerns.
Subjective/Objective
Subjective Data
Date of Service: July 15, 2024
Objective Data
Vital Signs
Temp Pulse Resp BP Pulse Ox
36.8 C 97 20 151/80 100
07/15/24 17:54 07/15/24 17:54 07/15/24 17:54 07/15/24 17:54 07/15/24 17:54
Patient Allergies
No Known Allergies Allergy (Verified 07/15/24 17:54)
Medications
-
Home Medications
�Medication �Instructions �Recorded
letrozole 2.5 mg tablet 2.5 mg PO HS breast cancer 04/15/16
palbociclib 125 mg capsule See Rx Instructions .Route 04/15/16
(Ibrance) .COMPLEX breast cancer
acetaminophen 325 mg tablet 325 mg PO Q6HPRN PRN headache 04/09/24
(Tylenol)
cholecalciferol (vitamin D3) 25 25 mcg PO DAILY Supplement 04/09/24
mcg (1,000 unit) tablet (Vitamin
D3)
levothyroxine 112 mcg tablet 112 mcg PO DAILY Thyroid 04/09/24
pyridostigmine bromide 60 mg 60 mg PO TID #30 tabs 04/11/24
tablet (Mestinon)
Vital Signs and Labs
-
Vital Signs and Labs:
Vital Signs
Temp Pulse Resp BP Pulse Ox
36.8 C 97 20 151/80 100
07/15/24 17:54 07/15/24 17:54 07/15/24 17:54 07/15/24 17:54 07/15/24 17:54
Home Medications
-
Home Medications
letrozole 2.5 mg tablet 2.5 mg PO HS breast cancer 04/15/16
palbociclib 125 mg capsule (Ibrance) See Rx Instructions .Route .COMPLEX breast cancer 04/15/16
acetaminophen 325 mg tablet (Tylenol) 325 mg PO Q6HPRN PRN headache 04/09/24
cholecalciferol (vitamin D3) 25 mcg (1,000 unit) tablet (Vitamin D3) 25 mcg PO DAILY Supplement 04/09/24
levothyroxine 112 mcg tablet 112 mcg PO DAILY Thyroid 04/09/24
pyridostigmine bromide 60 mg tablet (Mestinon) 60 mg PO TID #30 tabs 04/11/24
[2024-07-15 19:15] VITALS: BMI 21.5
[2024-07-15 19:17] VITALS: BP 142/73
[2024-07-15 19:27] LABS: Ionized Calcium 1.25 mMOL/L (1.15-1.33)
[2024-07-15 19:46] LABS: Blood Urea Nitrogen 13 mg/dl (7-17); Calcium 9.9 mg/dl (8.4-10.2); Carbon Dioxide 26 mmol/L (22-30); Chloride 105 mmol/L (98-107); Estimated Creatinine Clearance 66 ml/min; Glucose 119 mg/dl (70-99); Potassium 4.1 mmol/L (3.5-5.1); Sodium 141 mmol/L (135-145); eGFR > 60.00
[2024-07-15 20:00] VITALS: BP 113/70
[2024-07-15 20:08] LABS: % Basophils 2.3 % (0-2); % Eosinophils 0.5 % (0-6); % Immature Granulocytes 0.5 % (0-0.5); % Lymphocytes 22.9 % (20.5-51.1); % Monocytes 6.4 % (1.7-9.3); % Neutrophils 67.4 % (42.2-75.2); Absolute Basophils 0.1 10^3/uL (0-0.2); Absolute Lymphocytes 0.5 10^3/uL (1.2-3.4); Absolute Monocytes 0.1 10^3/uL (0.1-0.6); Absolute Neutrophils 1.5 10^3/uL (1.4-6.5); Hematocrit 29.8 % (37.0-47.0); Hemoglobin 10.4 g/dL (12.0-16.0); Mean Corp Hgb Conc. 34.9 g/dL (33.0-37.0); Mean Corpuscular Hgb 35.7 pg (27.0-31.0); Mean Corpuscular Volume 102.4 fL (81.0-99.0); Mean Platelet Volume 9.4 fL (7.4-10.4); Nucleated Red Blood Cells % 0 %; Platelet Count 323 10^3/uL (130-400); Red Blood Cell Count 2.91 10^6/uL (4.20-5.40); White Blood Cell Count 2.2 10^3/uL (4.8-10.8)
--- NOTE | 2024-07-15 20:08 | ED.GENMED ---
History of Present Illness
General
Chief Complaint: Weakness
Source: patient and spouse
Exam Limitations: none
Time Seen by Provider: 07/15/24 18:33
History of Present Illness
History of Present Illness:
53-year-old female complaining of progressive bilateral lower extremity weakness. Started with tingling in her legs 5 days ago. Increased weakness this morning. Has been trying to schedule outpatient MRIs through [facility] and pain
without success. No upper extremity weakness no headache no visual issues no speech issues no other complaints. Patient is currently being treated for metastatic CA
Past History
Past History
ED Past Medical History: Cancer (Metastatic breast)
ED Past Surgical History: None
Social History
Tobacco: Non-smoker
Personal:
Living: with family
Review of Systems
Review of Systems
All Other Systems: Not applicable
Constitutional: Denies fever or chills
Cardiac: Reports no symptoms
ABD/GI: Reports no symptoms
Phy Exam
Physical Exam
Physical Exam:
GENERAL: Alert and oriented in no apparent distress
EYE: Orbits normal.
NECK: Supple, no significant adenopathy.
ENT: Pharynx without erythema
CARDIAC: Regular rate and rhythm without any obvious murmurs.
LUNGS: Clear breath sounds,normal
ABDOMEN: Soft, without focal tenderness or distention
NEUROLOGICAL: Alert and oriented , speech normal. Cranial nerves II through XII intact. Good upper extremity strength. Tele Rn normal. Plantarflexion dorsiflexion of the feet symmetrical and good. Patellar reflexes bilaterally. Able to straight
leg raise bilaterally. Light touch intact.
SKIN: Warm and dry, no rash or lesion, no discoloration, skin intact.
MUSCULOSKELETAL: No edema,no deformity.Good color
PSYCH: Normal and appropriate interaction.
Course
Orders/Labs/Results
Orders:
Orders
07/15/24 Breakfast
Regular
At Your Request: Full Participation
Does patient need a safe tray?: No
07/15/24 18:43
IV Insert/Care/Rem.- Treatment PRN
07/15/24 18:50
MR Thoracic Spine W Contrast Urgent
Comment:
Reason For Exam: Rule out thoracic cord metastasis
OK for patient to be off Cardiac Monitoring for MRI: No
Recent pill cam endoscopy?: No
07/15/24 19:06
MR Lumbar W/o & With Contrast Urgent
Comment:
Reason For Exam: Met breast Ca/lower extremity weakness
Recent pill cam endoscopy?: No
07/15/24 19:17
Basic Metabolic Panel Urgent
Calcium, Ionized [Ionized Calcium] Urgent
07/15/24 19:26
Lorazepam [Ativan] 1 mg PO NOW STA
07/15/24 19:34
Complete Blood Count/With Diff Urgent
Vitamin B1, Whole Blood [S] Routine
Vitamin B12 Routine
07/15/24 20:15
Urinalysis Routine
Date Specimen was Collected: 07/15/24
Time Specimen was Collected: 20:12
Urine Microscopic Routine
Date Specimen was Collected: 07/15/24
Time Specimen was Collected: 20:12
07/15/24 22:43
Admit/Transfer Patient As Directed
Co-Sign Provider:
Level of Care: Observation services
Assign to:: Medical/Surgical
Physician / Group: benson,jaquelin
Diagnosis: weakness
PRN Pain Medication Management As Directed
May give lesser potent ordered pain med per pt: Yes
preference::
Protocol:: Medication orders for pain may be administered in a
manner that supports deferring to patient preference
when the pt is:
- Requesting an ordered lesser potent pain medication.
Least to most potent pain medications are defined
as: acetaminophen < NSAID < tramadol < opioids
(morphine, oxycodone, hydromorphone).
- Requesting a lesser dose of the same medication IF
ORDERED.
- Requesting a less intrusive route of administration
if both routes are prescribed by the provider (PO <
IV).
07/15/24 22:44
Code Status As Directed
Resuscitation Status: Full Code
07/15/24 23:00
Flush (0.9% Sodium Chloride) [Flush (Nss)] See Dose Instructions IV PER PROTOCOL
07/15/24 23:22
Acetaminophen [Tylenol] 325 mg PO Q6HPRN PRN
Acetaminophen [Tylenol] 650 mg PO Q4HPRN PRN
Bisacodyl [Dulcolax] 10 mg RECTAL [id number] PRN
Docusate W/Senna [Senokot-S] 1 tablet PO BIDPRN PRN
Polyethylene Glycol Powder [Miralax] 17 grams PO DAILYPRN PRN
07/15/24 23:22
NEUROLOGY CONSULT Routine
Consulting Provider: Kaye Sanon
Was physician already notified: Yes
Activity As Directed
Activity Level: As Tolerated
Vital Signs As Directed
Frequency: Per unit guidelines
DX Deep Vein Thrombosis Video Routine
07/16/24 06:00
Levothyroxine [Synthroid] 112 mcg PO DAILY @ 0600
Occupational Therapy Consult [Ot Eval And Treat] IN AM
Physical Therapy Consult [Pt Eval And Treat] IN AM
Activity Level: As Tolerated
07/16/24 06:01
Complete Blood Count/No Diff IN AM
07/16/24 08:00
Cholecalciferol (Vitamin D3) [VITAMIN D3 (cholecalciferol)] 25 mcg PO DAILY
07/16/24 18:00
Enoxaparin Sodium [Lovenox] 40 mg SC QPM
07/16/24 22:00
Edqqunrog-Pvd-Dndt [Femara] 2.5 mg PO HS
Abnormal Lab Results
07/15/24 07/15/24 07/15/24
19:17 19:34 20:15
WBC 2.2 L* 10^3/uL
(4.8-10.8)
RBC 2.91 L 10^6/uL
(4.20-5.40)
Hgb 10.4 L g/dL
(12.0-16.0)
Hct 29.8 L %
(37.0-47.0)
MCV 102.4 H fL
(81.0-99.0)
MCH 35.7 H pg
(27.0-31.0)
Absolute Lymphs (auto) 0.5 L 10^3/uL
(1.2-3.4)
Basophils % 2.3 H %
(0-2)
Glucose 119 H mg/dl
(70-99)
Urine Ketones 2+ A
(Negative)
Ur Leukocyte Esterase 1+ A
(Negative)
Urine Bacteria Few A
(Negative)
Urine Albumin 1+ A
(Neg - Trace)
07/15/24 19:34
07/15/24 19:17
Vital Signs
Initial and Last Documented VS:
Initial Vital Signs
Temp Pulse Resp BP Pulse Ox
98.3 F 97 20 151/80 100
07/15/24 17:54 07/15/24 17:54 07/15/24 17:54 07/15/24 17:54 07/15/24 17:54
Last Documented Vital Signs
Temp Pulse Resp BP Pulse Ox
98.1 F 98 14 119/76 98
07/16/24 15:29 07/16/24 15:29 07/16/24 15:29 07/16/24 15:29 07/16/24 15:29
MDM/Problems Addressed
Differential Diagnosis Includes:
Discussed with neurology. Thoracic spine MRI with and without stat. Discussed with neuroradiology. Also added lumbar MRI. MR brain and cervical not emergent. Good upper extremity strength. Neurology has seen the patient and is agreement with
this approach. Discussed with Dr. Villaseñor, oncology at [facility]. Agree with management.
*Radiology
Radiology exam reviewed: radiology read reviewed (MRIs are all stable with no acute new disease.)
*Pulse Oximetry
Patient hypoxic: no
*Critical Care Note
Total Time (30-74mins, 75-104mins- exclusive of procedures): Not Applicable
Update Note
Update Note:
Seen by neurology. Stable MRIs. No indication urgent surgery or emergent radiation therapy. Admit for further workup
ED Attending Note
-
Portions of this chart may have been created with voice recognition software.� Occasional wrong word or��sound alike� substitutions may have occurred due to the inherent limitations of voice recognition software.
Discharge Plan
Departure
Patient Disposition: Admit
Date of Disposition: 07/15/24
Time of Disposition: 22:23
Presentation/result/management discussed w/ accepting MD/DO: Neurology
Discharge Problem:
Bilateral lower extremity weakness, History of metastatic breast CA
Interventions
Interventions:
*Risk Screen - Suicide Last Done: 07/15/24 17:54
*General Assessment Last Done: 07/15/24 19:15
*Neglect/Abuse Screening Last Done: 07/15/24 18:35
*ED- Fall Risk Assessment Last Done: 07/15/24 19:15
*ED COVID-19 Vaccine History Last Done: 07/15/24 19:15
*Nursing Disposition Last Done: 07/16/24 07:58
ED- Cardiac Assessment Last Done: 07/15/24 19:22
ED- Neurological Assessment Last Done: 07/15/24 19:22
ED- Pulmonary Assessment Last Done: 07/15/24 19:22
Discharge Date and Time
Discharge Date/Time: 07/16/24 07:59
[2024-07-15] MEDS: ATIVAN 1 MG PO (20:12)
[2024-07-15 20:26] LABS: Urine Albumin 1+ (Neg - Trace); Urine Bilirubin Negative (Negative); Urine Character Clear (Clear); Urine Color Yellow; Urine Glucose Negative (Negative); Urine Ketone 2+ (Negative); Urine Leukocyte 1+ (Negative); Urine Nitrite Negative (Negative); Urine Occult Blood Negative (Negative); Urine Urobilinogen 1+ (Neg - 1+)
[2024-07-15 20:34] LABS: Urine Bacteria Few (Negative); Urine Mucus Moderate; Urine Red Blood Cell 0-2 /HPF (0-2)
[2024-07-15 20:35] LABS: Urine Hyaline Cast 0-2 /LPF (0-2)
[2024-07-15 20:51] LABS: Vitamin B12 506 pg/ml (239-931)
[2024-07-15 22:13] VITALS: BP 133/65
--- NOTE | 2024-07-15 22:28 | HPS.HSE ---
Family Physician
-
Family Physician: Javi Mayberry
Chief Complaint
-
b/l LE weakness
History of Present Illness
53-year-old female with metastatic left breast cancer on oral chemo presented with b/l LE progressive weakness since last Monday. patient stated tingling on her toes. her toes feels tight and cramping. today she was not able to get up or walk
her own. she walked with walker. she was having urinary frequency today morning.denied back pain. denied incontinence of bowel or bladder. denied MEDELLIN, dizzy. denied fever, chills, chest pain, sob.denied abdominal pain,n,v,d. denied dysuria or
hematuria.
lumbar spine and thoracic. spine MRI done in ER. patient was evaluated by neurology.
Medical History
Past Medical History
Past Medical History: Reports Other
Additional Past Medical History:
left breat cancer
Past Surgical History: Reports None
Social History
Tobacco: Non-smoker
Alcohol: None
Drug: None
Family History
Family History: Not pertinent
Allergies / Home Medications
Allergies reflects when Allergies were last updated in [facility].
Home Medications with original date entered in [facility]
Allergy/Medication List:
Allergies
Allergy/AdvReac Type Severity Reaction Status Date / Time
No Known Allergies Allergy Verified 07/15/24 17:54
Home Medications
letrozole 2.5 mg tablet 2.5 mg PO HS breast cancer 04/15/16
palbociclib 125 mg capsule (Ibrance) See Rx Instructions .Route .COMPLEX breast cancer 04/15/16
acetaminophen 325 mg tablet (Tylenol) 325 mg PO Q6HPRN PRN headache 04/09/24
cholecalciferol (vitamin D3) 25 mcg (1,000 unit) tablet (Vitamin D3) 25 mcg PO DAILY Supplement 04/09/24
levothyroxine 112 mcg tablet 112 mcg PO DAILY Thyroid 04/09/24
Review of Systems
-
Constitutional: Reports No Symptoms
EENT: Reports No Symptoms
Respiratory: Reports No Symptoms
Cardiac: Reports No Symptoms
Abdomen/GI: Reports No Symptoms
: Reports No Symptoms
Musculoskeletal: Reports No Symptoms
Skin: Reports No Symptoms
Neurological: Reports No Symptoms and Weakness (LE)
Endocrine: Reports No Symptoms
Hematologic/Lymphatic: Reports No Symptoms
Psych: Reports No Symptoms
Physical Exam
Vital Signs
Vital Signs
Temp Pulse Resp BP Pulse Ox
98.3 F 90 16 113/70 98
07/15/24 17:54 07/15/24 19:00 07/15/24 20:00 07/15/24 20:00 07/15/24 20:00
Physical Exam
General: Well Developed, Well Nourished and No Apparent Distress
HEENT: NormoCephalic, Moist mucous membranes and Atraumatic
Respiratory: Clear
Cardiac: S1/S2 and Regular Rhythm; No Murmur or Rub
GI: Soft, Non Tender, Non Distended and Normal Bowel Sounds; No Organomegaly
Rectal: Deferred by Provider
Musculoskeletal: No Clubbing, No Cyanosis and No Edema
Skin: No Rash
Neuro: AO x 3 and Nonfocal/grossly intact
Psych: Calm
Laboratory Results
-
07/15/24 19:34
07/15/24 19:17
Data Reviewed
-
MRI: Report Reviewed by me
Lab Data: Labs Reviewed by me
Impression/Plan
-
#progressively b/l LE weakness
thoracic spine MRI There is NO new significant spinal canal or neuroforaminal narrowing.Osseous metastatic disease involving the C7, T1 and T2 vertebral bodies which are overall similar in appearance to prior. The lesion involving the T1 vertebral
body extends into the posterior elements as seen on prior examination. There is an additional osseous metastatic focus within the posterior right eighth rib which was also present on prior examination. There is no evidence of new osseous metastatic
disease within the thoracic spine.There is no evidence of leptomeningeal disease within the thoracic spine.There is a central disc extrusion with cranial migration at the T12-L1 level with resultant mild canal stenosis, unchanged from prior.
-lumbar MRI Osseous metastatic lesion within the S3 vertebral body which is overall similar appearance to prior. There is no evidence of new osseous metastatic disease within the lumbar spine.There is no evidence of leptomeningeal disease within the
lumbar spine.Multilevel mild degenerative with resultant mild canal stenosis at the L1-L2 and L3-L4 levels which is overall similar in appearance to prior.
-MR brain and cervical in am
-PT/OT
-neurology eval
#Metastatic breast CA
#Chronic leukopenia
#Chronic anemia
-letrozole continued
#Hypothyroidism
cont home meds
DVT ppx Lovenox
Full code
--- NOTE | 2024-07-15 22:58 | W.PN.UPDATE ---
Update Note
Progress Note Update
This note serves as an addendum to the H&P by spark plug tester LARA Silva STARK
HPI
53yo F with metastatic breast CA to the bones on chemotherapy, hypothyroidism, admission in Apr for intermittent binocular diplopia seen by neurologist and suggest probable neuromuscular junction disorder/ Myasthesia gravis Brain MRI at that time
showed no acute infarcts. Per patient symptoms lasted several days after hospital discharge with spontaneous resolution. Thus She has not required Mestinon.
Today seen at for subacute sensory symptoms and ambulatory dysfunction.
- subacute paresthesia Rt > Lt foot since 07/10/2024.
- e constant and are associated with right foot cramping and imbalance.
- associated with difficulty with driving over the weekend and difficulties with standing since morning today.
- No reports of motor symptoms, sensory symptoms in the hands, radicular back pain.
PHX; se above
Vital Signs
Temp Pulse Resp BP Pulse Ox
98.3 F 85 16 133/65 96
07/15/24 17:54 07/15/24 22:00 07/15/24 22:00 07/15/24 22:13 07/15/24 22:45
PE
Gen: no apparent distress
HEENT: symmetric face
Neck: supple
Lungs: CTA
Cor: RRR S1 S2
Abdomen: Soft, without focal tenderness or distentio
BUS ANALYST:
Good upper extremity strength. Finance Vice President normal.
Plantarflexion dorsiflexion of the feet symmetrical and good.
Patellar brisk reflexes bilaterally.
Able to straight leg raise bilaterally.
Light touch intact.
MS: no edema
Psych: orml mood and affect
Labs
04/09/24 07/15/24 07/15/24
16:40 19:17 19:34
WBC 2.0 L* 2.2 L*
Hgb 10.6 L 10.4 L
MCV 104.5 H 102.4 H
BUN 13
Creatinine 0.8
eGFR > 60.00
Whole Bld Vitamin B1 Pending
Vitamin B12 506
MR Lumbar W/o & With Contrast
- Osseous metastatic lesion within the S3 vertebral body which is overall similar appearance to prior.
- There is no evidence of new osseous metastatic disease within the lumbar spine.
MR Thoracic Spine W Contrast
- Osseous metastatic disease involving the C7, T1 and T2 vertebral bodies which are overall similar in appearance to prior.
- The lesion involving the T1 vertebral body extends into the posterior elements as seen on prior examination.
- There is an additional osseous metastatic focus within the posterior right eighth rib which was also present on prior examination.
- There is no evidence of new osseous metastatic disease within the thoracic spine.
- There is no evidence of leptomeningeal disease within the thoracic spine.
- There is a central disc extrusion with cranial migration at the T12-L1 level with resultant mild canal stenosis, unchanged from prior.
- There is new significant spinal canal or neuroforaminal narrowing.
11/30/20 TTE
- Normal left ventricular size, wall thickness and systolic function.
- No regional wall motion abnormalities are seen. LV ejection fraction is 60-65%.
- Mild tricuspid regurgitation.
- No prior study available for comparison.
Last hospitalist admission: Date of Admission: 04/09/24 - Date of Discharge: 04/11/24
DC DXs: diplopia
ASSESSMENT & PLAN
Acute gait dysfunction need walker
Subacute distal TIEN paresthesias with normal DTR of b/l KJ and AJ
Osseous metastatic disease involving the C7, T1 and T2 vertebral bodies - no interval change
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
Thoracic and Lx sine DJD, S3 osseous metastases, s/p RT
- Urinary urgency but No new Bladder abd BW incontinence
- Fall precautions
- f/u PVR
- MRI Brain and Cx spine with contrast in AM
- PT consult
- Neuro consult f/u
Known Metastatic breast CA to the bones
Stable pancytopenia
- on PO Letrozole
Hypothyroid
- on LT4
DVT Px: LMWH
Full code
Obs MS
[2024-07-15 23:00] VITALS: BP 116/85
[2024-07-15 23:29] VITALS: BP 116/85
[2024-07-16 06:24] LABS: Hematocrit 29.5 % (37.0-47.0); Hemoglobin 10.2 g/dL (12.0-16.0); Mean Corp Hgb Conc. 34.6 g/dL (33.0-37.0); Mean Corpuscular Hgb 35.8 pg (27.0-31.0); Mean Corpuscular Volume 103.5 fL (81.0-99.0); Mean Platelet Volume 9.5 fL (7.4-10.4); Platelet Count 258 10^3/uL (130-400); Red Blood Cell Count 2.85 10^6/uL (4.20-5.40); Red Cell Dist. Width 12.5 % (11.5-14.5)
[2024-07-16 08:30] VITALS: BP 117/67
[2024-07-16 09:25] VITALS: BP 101/78; PULSE 79
[2024-07-16 09:26] VITALS: BP 101/78; PULSE 79
--- NOTE | 2024-07-16 09:52 | CM ---
CM following re: discharge planning.
Reviewed pt's chart, met with pt.
Pt is a 53 year old female, admitted with OBS status and primary dx of progressively b/l LE weakness. OBS letter presented to the pt, pt expressed understanding, declined to sign, pt has a copy.
Pt reports she lives with 2SH, 2 steps to enter, has 3 supportive children. Pt reports she was born and grew up in [place], emigrated to [place] at the age of 8. 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 Pt reports she was seen by
PT and OT today and outpatient PT/OT recommended with recommendation of using a walker. Pt stated she will come to outpatient therapy department.
Please provide a script for outpatient PT/OT.
PCP: Javi Mayberry
Pharmacy: [facility].
D/C plan: home with outpatient PT/OT and family support. to transport at discharge.
CM will follow with discharge plan updates as hospitalization progresses
[2024-07-16] MEDS: VITAMIN D3 (cholecalciferol) 25 MCG PO (12:04)
[2024-07-16] MEDS: SYNTHROID 112 MCG PO (12:05)
--- NOTE | 2024-07-16 12:10 | W.PN.HOSP.TC ---
Today's Communication/Plan
-
See plan
Assessment / Plan
Assessment / Plan
Impression:
Bilateral right greater than left lower extremity paresthesia
Subacute ambulatory dysfunction close 2-week upon presentation.
Hyperreflexia
Stage IV breast carcinoma with skeletal metastasis, on implants and letrozole.
Leukopenia
Macrocytic anemia.
Plan
Thoracic spine MRI
Osseous metastatic disease involving the C7, T1 and T2 vertebral bodies which are overall similar in appearance to prior. The lesion involving the T1 vertebral body extends into the posterior elements as seen on prior examination. There is an
additional osseous metastatic focus within the posterior right eighth rib which was also present on prior examination. There is no evidence of new osseous metastatic disease within the thoracic spine.
There is no evidence of leptomeningeal disease within the thoracic spine.
There is a central disc extrusion with cranial migration at the T12-L1 level with resultant mild canal stenosis, unchanged from prior. There is new significant spinal canal or neuroforaminal narrowing.
Lumbar spine MRI
Osseous metastatic lesion within the S3 vertebral body which is overall similar appearance to prior. There is no evidence of new osseous metastatic disease within the lumbar spine.
There is no evidence of leptomeningeal disease within the lumbar spine.
Multilevel mild degenerative with resultant mild canal stenosis at the L1-L2 and L3-L4 levels which is overall similar in appearance to prior.
Recent brain MRI with no intracranial spread
Ongoing workup with MRI of the brain and cervical spine pending.
Recent workup for MG negative.
Neurology input appreciated
Leukopenia
Chronic microcytic anemia
Suspect secondary to Ibrance. Monitor CBC
Physical therapy evaluation
Anticipated Discharge: 24 - 48 hours
Subjective/Interval History
-
Date of Service: July 16, 2024
Objective Data
-
Labs:
Laboratory Results
07/16/24
06:01
WBC 2.0 L*
Hgb 10.2 L
Hct 29.5 L
Plt Count 258 D
Vital Signs:
Vital Signs
Temp Pulse Resp BP Pulse Ox
98.1 F 73 14 117/67 100
07/16/24 08:30 07/16/24 08:30 07/16/24 08:30 07/16/24 08:30 07/16/24 08:30
Physical Exam
-
General: Well Developed
HEENT: Normocephalic and Atraumatic
Respiratory: Clear to Auscultation
GI: Soft, Nontender and Nondistended
Skin: Warm
Neuro: Awake, Alert, Oriented and AO x 3
Psych: Calm
[2024-07-16 15:29] VITALS: BP 119/76
--- NOTE | 2024-07-16 16:16 | W.PN.NEURO.1 ---
Today's Communication / Plan
-
.
Subjective/Objective
Subjective Data
Date of Service: July 16, 2024
Neurology follow-up note
Ms. Aldrich states that around two weeks ago, she experienced problems walking, characterized by foot spasms and loss of balance provoked by startling. The patient endorses intermittent burning sensation in the back of her thighs and legs that nearly
resolved following RT for a few months following RT but has been intermittently present since then. Last week, the symptoms returned, though not as intense as before.
Labs�normal B12, calcium, sodium, GFR.
T-spine MRI with and without maura�no evidence of leptomeningeal disease or additional known osseous metastasis. No evidence of intra or extra medullary lesions
LS-spine MRI with and without maura�mild LS DJD with no spinal root enhancement.
PMH: stage IV left breast invasive carcinoma(2014), S3 osseous metastases, s/p RT , anemia, hypothyroidism vitamin D deficiency, osteopenia, GERD
PSH: right breast lumpectomy
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
FH: Mother�check arrhythmia, grandmother�colon cancer, stroke.
All:NKDA
ROS: Constitutional: Negative. Negative for chills, fever and unexpected weight change.
HENT: Negative for ear pain, hearing loss, tinnitus and trouble swallowing.
Eyes: Negative. Negative for photophobia, pain and visual disturbance.
Respiratory: Negative for cough, choking and shortness of breath.
Cardiovascular: Negative for chest pain, palpitations and leg swelling.
Gastrointestinal: Negative for abdominal pain and vomiting.
Endocrine: Negative. Negative for cold intolerance.
Genitourinary: Positive for urinary frequency
Musculoskeletal: Negative for back pain, gait problem, neck pain and neck stiffness.
Skin: Negative for rash.
Allergic/Immunologic: Negative. Negative for immunocompromised state.
Neurological: Positive for paresthesias, imbalance
Psychiatric/Behavioral: Negative for behavioral problems, confusion and hallucinations.
General: Well developed. In no acute distress.
Cardio: Regular rate and rhythm without murmur. Extremities are without cyanosis or edema.
Neuro:
Mental Status: Alert, oriented to person, place, and date. Normal attention and recall. Good fund of knowledge. Follows complex requests across the midline. Comprehension, naming, and repetition intact. Anxious mood
Cranial Nerves: Pupils are equally round and reactive to light. EOMs full. Visual abbott full to confrontation. No ptosis. No nystagmus. V1-V3 intact to light touch and pinprick bilaterally, symmetric. Face symmetric. Normal hearing AU. The
palate elevated well. SCMs and traps 5/5. Tongue midline. No dysarthria.
Motor: Normal bulk and tone. No pronator or arm drift. Strength 5/5 throughout. No clonus.
Reflexes: 2+ throughout the upper extremities and 3+ knees. 2/2 in AJs. Plantar responses flexor bilaterally. Negative Eunice's bilaterally
Sensory: Normal vibration and proprioception at the toes
Coordination: No dysmetria or tremor.
Gait: Normal stance, base, stride, able to stand on each foot, about to stand on tiptoes.
Assessment and Plan:
I. Distal paresthesias. Neuroexam has been stable.
II. Stage IV left breast invasive carcinoma
III. T/LS DJD, S3 osseous metastases, s/p RT .
- Fall precautions
- Follow-up neuropathy blood work, CK as op
-Outpatient NCS/EMG
-Outpatient neurology and oncology follow-up
-Please recall neurology services any questions or concerns
I personally reviewed all radiology and labs along with past medical records pertinent to current medical problems. Total time spent in patient care is 36 minutes.
Thank you for allowing us to participate in the care of this patient. Please do not hesitate to contact us with any questions or concerns.
Objective Data
Vital Signs
Temp Pulse Resp BP Pulse Ox
36.7 C 98 14 119/76 98
07/16/24 15:29 07/16/24 15:29 07/16/24 15:29 07/16/24 15:29 07/16/24 15:29
Lab Results
07/16/24 06:01
07/15/24 19:17
Sodium 141 mmol/L (135-145) 07/15/24 19:17
Potassium 4.1 mmol/L (3.5-5.1) 07/15/24 19:17
BUN 13 mg/dl (7-17) 07/15/24 19:17
Glucose 119 mg/dl (70-99) H 07/15/24 19:17
Calcium 9.9 mg/dl (8.4-10.2) 07/15/24 19:17
Vitamin B12 506 pg/ml (171-756) 07/15/24 19:34
Patient Allergies
No Known Allergies Allergy (Verified 07/15/24 17:54)
Vital Signs and Labs
-
Vital Signs and Labs:
Vital Signs
Temp Pulse Resp BP Pulse Ox
36.7 C 98 14 119/76 98
07/16/24 15:29 07/16/24 15:29 07/16/24 15:29 07/16/24 15:29 07/16/24 15:29
Lab Results
07/16/24 06:01
07/15/24 19:17
Sodium 141 mmol/L (135-145) 07/15/24 19:17
Potassium 4.1 mmol/L (3.5-5.1) 07/15/24 19:17
BUN 13 mg/dl (7-17) 07/15/24 19:17
Glucose 119 mg/dl (70-99) H 07/15/24 19:17
Calcium 9.9 mg/dl (8.4-10.2) 07/15/24 19:17
Vitamin B12 506 pg/ml (661-274) 07/15/24 19:34
Medications
-
Medications:
Generic Name Dose Route Start Last Admin
Trade Name Freq PRN Reason Stop Dose Admin
Acetaminophen 325 mg 07/15/24 23:22
Acetaminophen 325 Mg Tablet PO 08/12/24 23:21
Q6HPRN PRN
headache
Acetaminophen 650 mg 07/15/24 23:22
Acetaminophen 325 Mg Tablet PO 08/12/24 23:21
Q4HPRN PRN
mild pain/MEDELLIN/temp> 100.4F
Bisacodyl 10 mg 07/15/24 23:22
Bisacodyl 10 Mg Rectal Suppository RECTAL 08/12/24 23:21
[id number] PRN
constipation
Cholecalciferol 25 mcg 07/16/24 08:00 07/16/24 12:04
Cholecalciferol (Vitamin D3) 25 Mcg Tablet (1,000 Units) PO 08/13/24 07:59 25 mcg
DAILY DARIUS Administration
Enoxaparin Sodium 40 mg 07/16/24 18:00
Enoxaparin Sodium 40 Mg/0.4 Ml Syringe SC 08/13/24 17:59
QPM DARIUS
Letrozole 2.5 mg 07/16/24 22:00
Letrozole 2.5 Mg (Non-Form) Tablet PO 08/13/24 21:59
HS DARIUS
Levothyroxine Sodium 112 mcg 07/16/24 06:00 07/16/24 12:05
Levothyroxine 112 Mcg Tablet PO 08/13/24 05:59 112 mcg
DAILY @ 0600 DARIUS Administration
Polyethylene Glycol 17 grams 07/15/24 23:22
Polyethylene Glycol Powder 17 Grams Packet PO 08/12/24 23:21
DAILYPRN PRN
constipation
Senna/Docusate Sodium 1 tablet 07/15/24 23:22
Docusate W/Senna (Katiuska-Colace) Tablet PO 08/12/24 23:21
BIDPRN PRN
constipation
Sodium Chloride 0 flush 07/15/24 23:00
Sodium Chloride 0.9% (Flush) Syringe IV 08/12/24 22:59
PER PROTOCOL DARIUS
Home Medications
-
Home Medications
letrozole 2.5 mg tablet 2.5 mg PO HS breast cancer 04/15/16
palbociclib 125 mg capsule (Ibrance) See Rx Instructions .Route .COMPLEX breast cancer 04/15/16
acetaminophen 325 mg tablet (Tylenol) 325 mg PO Q6HPRN PRN headache 04/09/24
cholecalciferol (vitamin D3) 25 mcg (1,000 unit) tablet (Vitamin D3) 25 mcg PO DAILY Supplement 04/09/24
levothyroxine 112 mcg tablet 112 mcg PO DAILY Thyroid 04/09/24
--- NOTE | 2024-07-16 17:15 | W.DS.TRANS ---
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
-
Discharge Instructions:
Discharge Diagnosis/Procedures Peripheral neuropathy.
Ambulatory dysfunction.
Metastatic breast carcinoma
Diet Regular
Instructions:
Stand-Alone Forms:
Changes to Home Medications: No
Discharge Medications:
DC Medications w/original date entered in [employer]
letrozole 2.5 mg tablet 2.5 mg PO HS breast cancer 04/15/16
palbociclib 125 mg capsule (Ibrance) See Rx Instructions .Route .COMPLEX breast cancer 04/15/16
acetaminophen 325 mg tablet (Tylenol) 325 mg PO Q6HPRN PRN headache 04/09/24
cholecalciferol (vitamin D3) 25 mcg (1,000 unit) tablet (Vitamin D3) 25 mcg PO DAILY Supplement 04/09/24
levothyroxine 112 mcg tablet 112 mcg PO DAILY Thyroid 04/09/24
Home Medication Changes
Pending Results: No
[2024-07-19 12:36] LABS: Vitamin B1, Whole Blood 93 nmol/L (70-180)
== END 2024-07-16 18:10 | disposition home or self-care (01) ==
LOC: 1 ACUTE 22:56
PROVIDERS: Registered Nurse; ADMITTING PHYSICIAN Internal Medicine; ATTENDING PHYSICIAN Internal Medicine; CONSULT PHYSICIAN Psychiatry & Neurology Neurology; EMERGENCY PHYSICIAN Emergency Medicine; FAMILY PHYSICIAN Family Medicine
DX: R20.2 Paresthesia of skin (principal); K21.9 Gastro-esophageal reflux disease without esophagitis; E03.9 Hypothyroidism, unspecified; D61.818 Other pancytopenia; C79.51 Secondary malignant neoplasm of bone; R39.15 Urgency of urination; D50.9 Iron deficiency anemia, unspecified; E55.9 Vitamin D deficiency, unspecified; M48.02 Spinal stenosis, cervical region; M51.25 Other intervertebral disc displacement, thoracolumbar region; M85.80 Other specified disorders of bone density and structure, unspecified site; M48.05 Spinal stenosis, thoracolumbar region; Z79.811 Long term (current) use of aromatase inhibitors; Z79.899 Other long term (current) drug therapy; Z85.3 Personal history of malignant neoplasm of breast; Z92.21 Personal history of antineoplastic chemotherapy
CPT/HCPCS: 72147; 72158; 80048; 81003; 81015; 82330; 82607; 84425; 85025; 85027; 97163; 97166; 99285; A9575; G0378

== ENCOUNTER 2024-09-12 15:51 | Outpatient (RCR) | payer OTHER, SELFPAY | END 2024-09-12 23:59 | disposition home or self-care (01) | LOC: RPT 15:51 | PROVIDERS: ATTENDING PHYSICIAN Radiology Radiation Oncology; FAMILY PHYSICIAN Family Medicine | DX: C50.919 Malignant neoplasm of unspecified site of unspecified female breast (principal); M25.511 Pain in right shoulder; M62.81 Muscle weakness (generalized); C79.51 Secondary malignant neoplasm of bone; R26.2 Difficulty in walking, not elsewhere classified; G62.0 Drug-induced polyneuropathy; R26.89 Other abnormalities of gait and mobility; M79.673 Pain in unspecified foot | CPT/HCPCS: 97110; 97112; 97162; 97530 ==

== ENCOUNTER 2024-10-30 13:09 | Outpatient (RCR) | payer OTHER, SELFPAY | END 2024-10-30 23:59 | disposition home or self-care (01) | LOC: RPT 13:09 | PROVIDERS: ATTENDING PHYSICIAN Radiology Radiation Oncology; FAMILY PHYSICIAN Family Medicine | DX: C50.919 Malignant neoplasm of unspecified site of unspecified female breast (principal); M25.511 Pain in right shoulder; M62.81 Muscle weakness (generalized); C79.51 Secondary malignant neoplasm of bone; R26.2 Difficulty in walking, not elsewhere classified; G62.0 Drug-induced polyneuropathy; R26.89 Other abnormalities of gait and mobility; M79.673 Pain in unspecified foot | CPT/HCPCS: 97110; 97112 ==

== ENCOUNTER → 2024-12-12 07:32 | Outpatient (REF) | payer OTHER, SELFPAY ==
[2024-12-12 06:56] LABS: Glucose 98 mg/dl (70-99)
== END ==
LOC: PET 07:32
PROVIDERS: ATTENDING PHYSICIAN Nurse Practitioner Adult Health
DX: C50.919 Malignant neoplasm of unspecified site of unspecified female breast (principal)
CPT/HCPCS: 36415; 82947